=== PATIENT | male | born 1965 | race American Indian/Alaskan Native ===

== ENCOUNTER 2018-12-12 22:03 | Emergency (ER) | payer OTHER ==
[~2018-12-12] VITALS: Ht 180.3 cm; Wt 108.9 kg
[2018-12-12 22:17] VITALS: BP 147/80
--- NOTE | 2018-12-12 22:18 | NUR ---
TO LOBBY A/W BED, AMBULATORY, VSS ERMD NOTED
--- NOTE | 2018-12-12 23:00 | NUR ---
PT AMBULATED TO BED 6.
--- NOTE | 2018-12-12 23:22 | NUR ---
Dr. Dunham evaluating patient at bedside.
--- NOTE | 2018-12-12 23:22 | NUR ---
PT C/O 04/17 ACHING GENERAL ABDOMINAL PAIN X 4 QUADRANTS X 2 DAYS. NONRADIATING, CONTINUOUS. STATES LBM WAS 12/08/18. DENIES N/V/D. BOWEL SOUNDS NORMOACTIVE X 4 QUADRANTS, ABDOMEN ROUND, SOFT, NONTENDER. DENIES CP/SOB/FEVERS/CHILLS. BED IN LOW POSITION, LOCKED, SIDE RAILS UP X 1.
--- NOTE | 2018-12-12 23:32 | NUR ---
PT TAKEN TO XRAY
--- NOTE | 2018-12-12 23:43 | NUR ---
PT RETURN FROM XRAY
[2018-12-13] MEDS ORDERED: KETOROLAC 60 MG/2 ML VIAL IM ONE (00:10)
[2018-12-13 00:31] VITALS: BP 150/88
--- NOTE | 2018-12-13 00:31 | NUR ---
Patient discharged with v/s stable. Written and verbal after care instructions given and explained. Patient alert, oriented and verbalized understanding of instructions. Ambulatory with steady gait. All questions addressed prior to discharge. ID band removed. Patient advised to follow up with PMD. Rx of LACTULOSE AND MOTRIN given. Patient educated on indication of medication including possible reaction and side effects. Opportunity to ask questions provided and answered.
[2018-12-14] MEDS ORDERED: GABA300C PO (10:13)
[2018-12-14] MEDS ORDERED: GLIP10TA3 PO (10:13)
[2018-12-14] MEDS ORDERED: CARV3.12 PO (10:13)
[2018-12-14] MEDS ORDERED: METF-350 PO (10:13)
== END 2018-12-13 00:31 | disposition home or self-care (01) ==
LOC: MED 22:03
DX: K59.00 Constipation, unspecified (principal); E11.9 Type 2 diabetes mellitus without complications; I10 Essential (primary) hypertension
CPT/HCPCS: 74022; 81002; 93005; 96372; 99283; J1885

== ENCOUNTER 2018-12-14 06:17 | Inpatient (IN) | payer OTHER ==
[~2018-12-14] VITALS: Ht 180.3 cm; Wt 108.4 kg
[2018-12-14 06:28] VITALS: BP 162/105
--- NOTE | 2018-12-14 06:28 | NUR ---
PT TAKEN TO BED 9
--- NOTE | 2018-12-14 06:30 | NUR ---
PATIENT CAME INTO THE ER WITH C/O ABDOMINAL PAIN X 5 DAYS. PT WAS SEEN AT THE ER PREVIOUSLY ON 12/12/18 AND GIVEN PRESCRIPTION FOR LACTULOSE AND IBUPROFIN. PT DENIES N/V, ABDOMEN SOFT AND NON DISTENDED, BS ACTIVE X 4 Q, TENDER TO PALPATION IN THE LUQ, LBM 12/13/18 AT 1700, STOOL WAS LOOSE, SOFT AND BROWN. ER MD AWARE. SAFETY PRECAUTIONS IN PLACE. MED HX: HTN, DM, BACK SURGERY RX: METFORMIN, GLIPIZIDE, CARVEDILOL, LISINOPRIL, UNKNOWN NAME FOR MEDICATION FOR BACKPAIN.
--- NOTE | 2018-12-14 06:45 | NUR ---
Dr. Miramontes evaluating patient at bedside.
[2018-12-14] MEDS ORDERED: MORPHINE SULFATE 4 MG/ML SYR IVP ONE (06:50)
[2018-12-14] MEDS ORDERED: NACL 0.9% 1,000 ML IV ONE (06:50)
--- NOTE | 2018-12-14 07:05 | NUR ---
PHLEB AT BEDSIDE FOR LAB DRAWS
[2018-12-14 07:11] LABS: BASOPHILS # (AUTO) 0.1 K/uL (0.00-0.22); BASOPHILS % (AUTO) 0.6 % (0.0-2.0); EOSINOPHILS # (AUTO) 0.1 K/uL (0-0.4); EOSINOPHILS % (AUTO) 1.1 % (0.0-4.0); HEMATOCRIT 45.8 % (36-52); HEMOGLOBIN 15.6 g/dL (12.0-18.0); LYMPHOCYTES # (AUTO) 2.4 K/uL (2.0-11.5); LYMPHOCYTES % (AUTO) 19.3 % (20.5-51.1); MEAN CORPUSCULAR HEMOGLOBIN 29 pg (27-31); MEAN CORPUSCULAR HGB CONC 34 g/dL (33-37); MEAN CORPUSCULAR VOLUME 85.4 fL (80-94); MONOCYTES % (AUTO) 8.1 % (1.7-9.3); NEUTROPHILS # (AUTO) 8.7 K/uL (1.8-7.7); NEUTROPHILS % (AUTO) 70.9 % (42.2-75.2); PLATELET COUNT (AUTO) 272 K/uL (140-450); RED BLOOD CELL COUNT(AUTO) 5.36 MIL/uL (4.20-6.10); RED CELL DISTRIBUTION WIDTH 12.9 % (11.6-13.7); WHITE BLOOD COUNT (AUTO) 12.3 K/uL (4.8-10.8)
--- NOTE | 2018-12-14 07:28 | NUR ---
GAVE REPORT TO VANDANA YAÑEZ
[2018-12-14 07:45] LABS: ALBUMIN 3.8 g/dL (3.4-5.0); ANION GAP 16.6 (8-16); CARBON DIOXIDE 24.3 mmol/L (21-32); CREATININE 0.8 mg/dL (0.7-1.3); POTASSIUM 3.9 mmol/L (3.5-5.1); TOTAL BILIRUBIN 0.8 mg/dL (0.0-1.0)
--- NOTE | 2018-12-14 08:05 | NUR ---
Patient taken to CT scan via wheelchair by tech.
[2018-12-14 08:31] LABS: APPEARANCE,URINE CLEAR (CLEAR); COLOR,URINE ORANGE (YELLOW)
[2018-12-14 08:32] LABS: UGLUCOSE 4+ (NEGATIVE)
[2018-12-14 08:33] LABS: BILIRUBIN,URINE NEGATIVE (NEGATIVE); BLOOD, URINE TRACE (NEGATIVE)
[2018-12-14 08:34] LABS: LEUKOCYTE ESTERASE ,URINE NEGATIVE (NEGATIVE); NITRITE, URINE NEGATIVE (NEGATIVE)
[2018-12-14 08:37] LABS: RBC,URINE 0-5 /HPF (0-5); WBC,URINE 0-5 /HPF (0-5)
--- NOTE | 2018-12-14 09:12 | NUR ---
Patient will be admitted to care of DR. LIAO. Admited to MED SURG. Will go to room 106A. Belongings list completed. Report to SREE YAÑEZ.
[2018-12-14 09:20] VITALS: BP 152/92
--- NOTE | 2018-12-14 09:20 | NUR ---
PATIENT ARRIVED FROM ER VIA WHEELCHAIR. NO DISTRESS NOTED. PAIN WITHIN TOLERABLE AT THIS TIME. AAOX4, CALM, COOPERATIVE, SKIN COLOR APPROPRIATE TO ETHNICITY, WARM TO TOUCH. SKIN INTACT. IV SITE INTACT, PATENT, ON SALINE LOCK AT THIS TIME. ABDOMEN SOFT, NON-DISTENDED. ORIENTED PATIENT TO ROOM AND CALL LIGHT. REVIEWED PLAN OF CARE WITH PATIENT. PATIENT VERBALIZED UNDERSTANDING. SAFETY MEASURES IN PLACE, CALL LIGHT WITHIN REACH. WILL CONTINUE TO MONITOR.
--- NOTE | 2018-12-14 10:00 | NUR ---
DR. LIAO AT BEDSIDE REVIEWING PLAN OF CARE WITH PATIENT. WILL CONTINUE TO MONITOR.
[2018-12-14] MEDS ORDERED: GLIP10TA3 PO (10:13)
[2018-12-14] MEDS ORDERED: CARV3.12 PO (10:13)
[2018-12-14] MEDS ORDERED: METF-350 PO (10:13)
[2018-12-14] MEDS ORDERED: GABA300C PO (10:13)
[2018-12-14] MEDS ORDERED: MORPHINE SULFATE 2 MG/ML SYR IVP PRN (10:35)
[2018-12-14] MEDS ORDERED: MAG SULF 2000 MG/WATER PREMIX 50 ML IV PRN (10:35)
[2018-12-14] MEDS ORDERED: ZOLPIDEM 5 MG TAB PO PRN (10:35)
[2018-12-14] MEDS ORDERED: ALUMINUM HYD/MAG/SIMETHICONE 30 ML UDC PO PRN (10:35)
[2018-12-14] MEDS ORDERED: LORazepam 2 MG/ML VIAL IVP PRN (10:35)
[2018-12-14] MEDS ORDERED: HYDROcodone/APAP 5/325 MG 1 TAB TAB PO PRN (10:35)
[2018-12-14] MEDS ORDERED: guaiFENesin DM 200/20 MG-10 ML 10 ML UDC PO PRN (10:35)
[2018-12-14] MEDS ORDERED: cloNIDine 0.1 MG TAB PO PRN (10:35)
[2018-12-14] MEDS ORDERED: DOCUSATE SODIUM 250 MG GELCAP PO PRN (10:35)
[2018-12-14] MEDS ORDERED: POTASSIUM CHLORIDE 40 MEQ, LIDOCAINE 1% 25 MG in NACL 0.9% 250 ML IV PRN (10:35)
[2018-12-14] MEDS ORDERED: ACETAMINOPHEN 325 MG TAB PO PRN (10:35)
[2018-12-14] MEDS ORDERED: ONDANSETRON 4 MG/2 ML VIAL IVP PRN (10:35)
[2018-12-14] MEDS ORDERED: IPRATROPIUM 0.02% 0.5 MG/2.5 ML NEBU INH PRN (10:35)
[2018-12-14] MEDS ORDERED: diphenhydrAMINE 50 MG/ML VIAL IVP PRN (10:35)
[2018-12-14] MEDS ORDERED: POTASSIUM CHLORIDE 10 MEQ TABER PO PRN (10:35)
[2018-12-14] MEDS ORDERED: BISACODYL 10 MG SUPP RC PRN (10:35)
[2018-12-14] MEDS ORDERED: MAGNESIUM OXIDE 400 MG TAB PO PRN (10:35)
[2018-12-14] MEDS ORDERED: DEXTROSE 50% 50 ML SYR IVP PRN (10:35)
[2018-12-14] MEDS ORDERED: ALBUTEROL 0.083% 2.5 MG/3 ML NEBU INH PRN (10:35)
[2018-12-14] MEDS ORDERED: ACETAMINOPHEN 650 MG SUPP RC PRN (10:35)
[2018-12-14] MEDS ORDERED: LISINOPRIL 10 MG TAB PO SCH (11:00)
[2018-12-14] MEDS ORDERED: amLODIPine 5 MG TAB PO SCH (11:00)
[2018-12-14] MEDS: HYDROcodone/APAP 5/325 MG 1 TAB TAB PO PRN ×3 (11:13→21:33)
[2018-12-14] MEDS: NACL 0.45% 1,000 ML IV SCH (11:14)
[2018-12-14] MEDS: INSULIN LISPRO SLIDING SCALE 100 UNITS/ML VIAL SUBQ PRN ×3 (12:26→23:11)
[2018-12-14] MEDS: BLOOD GLUCOSE MONITORING 1 DEV DEV FS SCH ×3 (12:27→22:58)
--- NOTE | 2018-12-14 12:30 | NUR ---
PATIENT SITTING IN BED WITH LUNCH TRAY IN FRONT. DENIES ANY NAUSEA, NOR ANY ABD PAIN AT THIS TIME. SCHEDULED MEDICATIONS DUE GIVEN. WILL CONTINUE TO MONITOR.
--- NOTE | 2018-12-14 14:30 | NUR ---
PATIENT SITTING IN BED WATCHING TV. NO DISTRESS NOTED. DENIES ANY PAIN AT THIS TIME. CONDITION UNCHANGED. WILL CONTINUE TO MONITOR.
[2018-12-14] MEDS ORDERED: PNEUMOCOCCAL VACCINE 23 MCG/0.5 ML VIAL IMVAC PRN (15:00)
[2018-12-14 16:00] VITALS: BP 123/87
[2018-12-14] MEDS: CARVEDILOL 3.125 MG TAB PO SCH (17:01)
--- NOTE | 2018-12-14 17:16 | NUR ---
PATIENT SITTING IN BED, COMPLAINS OF ABD PAIN, NORCO GIVEN PER MD ORDERS. OTHER SCHEDULED MEDICATIONS DUE GIVEN. WILL CONTINUE TO MONITOR.
--- NOTE | 2018-12-14 19:35 | NUR ---
GAVE REPORT TO SOUND ENGINEER NURSE FOR CONTINUITY OF CARE. PATIENT IN STABLE CONDITION.
--- NOTE | 2018-12-14 19:35 | NUR ---
RECEIVED REPORT AT BEDSIDE FOR CONTINUITY OF CARE, PT IN STABLE CONDITION.
--- NOTE | 2018-12-14 20:00 | NUR ---
PT V/S FOLLOWS T 97.6 P 92 R 18 B/P 109/71 02 96% ON ROOM AIR. PT LUNGS CLEAR AND BOWEL SOUNDS PRESENT BUT SLUGGISH, PT SAID HE HAD A BM THIS AM.PT DENIES PAIN AT THIS TIME.
[2018-12-14] MEDS ORDERED: GABAPENTIN 300 MG CAP PO SCH (21:00)
[2018-12-14] MEDS: FAMOTIDINE 20 MG TAB PO SCH (21:27)
--- NOTE | 2018-12-14 21:35 | NUR ---
PT GIVEN DUE MEDS AT THIS TIME FINGERSTICK IS 184, PT GIVEN 2UNITS OF HUMALOG ANFD PT C/O OF 4/10 PAIN IN UPPER RIGHT QUADRENT, GIVEN 1 TAB OF NORCO PO/PRN FOR 4/10 PAIN. WILL MONITOR FOR EFFECT.
[2018-12-15] VITALS: BP 103/60
[2018-12-15] MEDS: NACL 0.45% 1,000 ML IV SCH
--- NOTE | 2018-12-15 01:00 | NUR ---
PT IN BED NO S/S OF PAIN OR DISTRESS NOTED, V/S FOLLOWS T 98.0 P 84 R 18 B/P 103/60 02 96% ON ROOM AIR. PT VOIDED 700MLS OF DARK CLAU URINE AND FLUIDS 1/2 N/S REPLACED AND RUNNING AT 75MLSD/HR.
--- NOTE | 2018-12-15 01:47 | NUR ---
REPORT GIVEN TO SEBASTIAN FOR CONTINUITY OF CARE,DUE TO CHANGE OF ASSIGNMENT PT IN STABLE CONDITION.
--- NOTE | 2018-12-15 01:47 | NUR ---
RECEIVED REPORT FROM RN. PT SLEEPING IN BED. NO S/S OF ACUTE DISTRESS. CALL LIGHT WITHIN REACH. SAFETY MEASURES ENSURED. WILL CONTINUE TO MONITOR.
--- NOTE | 2018-12-15 02:30 | NUR ---
RECEIVED PT BACK FOR ANOTHER CHANGE OF ASSIGNMENT. NO CHANGES , PT SLEEPING.
--- NOTE | 2018-12-15 03:45 | NUR ---
PT SLEEPING NO S/S OF PAIN OR DISTRESS NOTED. BED LOW SIDE RAILS UP X2 AND IV SITE INTACT AND RUNNING 75MLS ORDERED.
[2018-12-15] MEDS: INSULIN LISPRO SLIDING SCALE 100 UNITS/ML VIAL SUBQ PRN ×2 (06:19→12:06)
[2018-12-15] MEDS: BLOOD GLUCOSE MONITORING 1 DEV DEV FS SCH ×2 (06:21→12:05)
[2018-12-15] MEDS: HYDROcodone/APAP 5/325 MG 1 TAB TAB PO PRN (06:23)
--- NOTE | 2018-12-15 07:20 | NUR ---
GAVE REPORT TO CAITLIN YAÑEZ DAYSHIFT NURSE AT BEDSIDE FOR CONTINUITY OF CARE, PT IN STABLE CONDITION.
[2018-12-15 07:22] LABS: ANION GAP 12.1 (8-16); CARBON DIOXIDE 27.6 mmol/L (21-32); CREATININE 0.7 mg/dL (0.7-1.3); POTASSIUM 3.7 mmol/L (3.5-5.1)
--- NOTE | 2018-12-15 07:25 | NUR ---
RECEIVED HAND OFF REPORT FROM WIRE BENDER HAND NURSE. PT IS AWAKE IN BED. IV IS INFUSING 1/2 NS AT 75ML/HR. IV SHOWS NO SIGNS OF INFILTRATION. PT APPEARS IN NO APPARENT DISTRESS, ALL SAFETY MEASURES ARE IN PLACE. WILL CONTINUE TO MONITOR.
[2018-12-15 07:44] LABS: BASOPHILS % (AUTO) 0.5 % (0.0-2.0); EOSINOPHILS # (AUTO) 0.2 K/uL (0-0.4); EOSINOPHILS % (AUTO) 3.3 % (0.0-4.0); HEMATOCRIT 40.1 % (36-52); HEMOGLOBIN 13.5 g/dL (12.0-18.0); LYMPHOCYTES # (AUTO) 2.5 K/uL (2.0-11.5); LYMPHOCYTES % (AUTO) 34.5 % (20.5-51.1); MEAN CORPUSCULAR HEMOGLOBIN 29 pg (27-31); MEAN CORPUSCULAR HGB CONC 34 g/dL (33-37); MEAN CORPUSCULAR VOLUME 86.4 fL (80-94); MONOCYTES # (AUTO) 0.7 K/uL (0.8-1.0); MONOCYTES % (AUTO) 9.3 % (1.7-9.3); NEUTROPHILS # (AUTO) 3.8 K/uL (1.8-7.7); NEUTROPHILS % (AUTO) 52.4 % (42.2-75.2); PLATELET COUNT (AUTO) 260 K/uL (140-450); RED BLOOD CELL COUNT(AUTO) 4.64 MIL/uL (4.20-6.10); RED CELL DISTRIBUTION WIDTH 13.1 % (11.6-13.7); WHITE BLOOD COUNT (AUTO) 7.3 K/uL (4.8-10.8)
--- NOTE | 2018-12-15 08:20 | NUR ---
PERFORMED MORNING ASSESSMENT AND VITALS BP IS WITHIN NORMAL LIMITS PT IS AWAKE AND ALERT. PTS LUNG SOUNDS ARE CLEAR, S1 AND S2 HEARD UPON AUSCULTATION. PT HAS NO COMPLAINTS OF PAIN.
--- NOTE | 2018-12-15 08:21 | NUR ---
PATIENT HAS BEEN SCREENED AND CATEGORIZED HIGH NUTRITION RISK. PATIENT WILL BE SEEN WITHIN 1-2 DAYS OF ADMISSION. 12/15/[address]
[2018-12-15 08:26] VITALS: BP 122/76
--- NOTE | 2018-12-15 08:40 | NUR ---
PT IS AWAKE AND ALERT IN BED. FAMILY IS AT THE PT BEDSIDE. PT APPEARS IN STABLE CONDITION AND IN NO APPARENT DISTRESS. NO COMPLAINTS OF PAIN. ALL SAFETY MEASURES ARE IN PLACE. WILL CONTINUE TO MONITOR.
[2018-12-15] MEDS: CARVEDILOL 3.125 MG TAB PO SCH (08:41)
[2018-12-15] MEDS: FAMOTIDINE 20 MG TAB PO SCH (08:42)
[2018-12-15] MEDS ORDERED: LISINOPRIL 10 MG TAB PO SCH (09:00)
[2018-12-15] MEDS ORDERED: amLODIPine 5 MG TAB PO SCH (09:00)
[2018-12-15] MEDS ORDERED: ENOXAPARIN 40 MG/0.4 ML SYR SUBQ SCH (09:00)
[2018-12-15] MEDS ORDERED: SITA50TA3 PO (10:20)
--- NOTE | 2018-12-15 11:45 | NUR ---
FINGER STICK GLUCOSE CHECK 233 GAVE PT 4UNITS OF INSULIN PER SLIDING SCALE ORDER. PT IS AWAKE IN BED PT APPEARS IN STABLE CONDITION.
[2018-12-15 12:17] VITALS: BP 122/76
[2018-12-15 12:23] VITALS: BP 122/76
[2018-12-15 12:26] VITALS: BP 122/76
[2018-12-15 12:34] VITALS: BP 122/64
--- NOTE | 2018-12-15 13:30 | NUR ---
PT IS READY FOR DISCHARGE BEING PICKED UP BY HIS SON. IV IS REMOVED IV CATH TIP IS IN PLACE. ID BAND WAS REMOVED AND DISCARDED. CLIENT IS STABLE AND AMBULATED BY HIMSELF TO THE FRONT. PT SIGNED HIS FORMS. AND LEFT WITH ALL BELONGINGS AND PT LEFT WITH PAPER PRESCRIPTION FOR NEW MEDICATION ORDERS.
--- NOTE | 2018-12-15 14:08 | NUR ---
12/15/18 RD INITIAL ASSESSMENT COMPLETED PLEASE REFER TO NUTRITION ASSESSMENT UNDER CARE ACTIVITY FOR ESTIMATED NUTRITIONAL NEEDS. 1. CONTINUE CLEAR LIQUID CCHO 60 GM DIET TOLERATED 2. IF/WHEN PATIENT IS MEDICALLY STABLE CONSIDER ADVANCING HIS DIET TO CCHO [address] PROVIDED NUTRITION EDUCATION ON DIABETES. PT ACCEPTED 4. RD TO FOLLOW-UP 3-5 DAYS, MODERATE RISK RENETTA MONTOYA RD
--- NOTE | 2018-12-16 09:57 | NUR ---
CM NOTE I SPOKE WITH АНДРЕЙ OF [facility] PH# [phone] TO SET UP PATIENT'S OUTPATIENT FOLLOW UP APPOINTMENT ON DECEMBER 18, 2018, 2:15 PM AT THE CLINIC AT [address] [place] [address]. I CALLED THE PATIENT TO GIVE HIM HIS OUTPATIENT FOLLOW UP SCHEDULE.
== END 2018-12-15 13:30 | disposition home or self-care (01) | DRG 282 ==
LOC: MED 06:17 → MTU 08:41
PROVIDERS: ADMIT Internal Medicine Pulmonary Disease; ATTEND Internal Medicine Pulmonary Disease
DX: K85.90 Acute pancreatitis without necrosis or infection, unspecified (principal); E11.65 Type 2 diabetes mellitus with hyperglycemia; E66.01 Morbid (severe) obesity due to excess calories; F17.200 Nicotine dependence, unspecified, uncomplicated; I10 Essential (primary) hypertension; E78.5 Hyperlipidemia, unspecified; Z68.33 Body mass index [BMI] 33.0-33.9, adult
CPT/HCPCS: 36415; 80048; 80053; 81001; 82948; 83690; 85025; 87081; 93005; 96361; 96374; 99285; J1200; J1650; J1815; J2270; Q9967

== ENCOUNTER 2021-01-12 13:42 | Emergency (ER) | payer OTHER ==
[~2021-01-12] VITALS: Ht 180.3 cm; Wt 117.0 kg
[~2021-01-12 13:42] MED LIST: CARV3.12 PO; GABA300C PO; GLIP10TA3 PO; SITA50TA3 PO
[2021-01-12 14:00] VITALS: BP 148/90
--- NOTE | 2021-01-12 14:06 | NUR ---
LAURIE Cooper at pt bedside for further evaluation.
--- NOTE | 2021-01-12 14:06 | NUR ---
Pt ambulated to ER bed 9.
--- NOTE | 2021-01-12 14:11 | NUR ---
55 Y/O MALE C/O LOWER BACK PAIN FOR [id number], PT STATES PAIN WORSENS WITH MOVEMENT. PT TOOK GABAPENTIN AND NO RELIEF. PT AT THIS MOMENT 04/17. PT HAS HISTORY OF HERNIATED DISK AND BACK SURGERY. PMH: DM, HTN, CHRONIC BACK PAIN RX: GLIPIZDIE, LISINOPRIL, CARBIDOL, ASA, PIOGLITAZONE, GABAPENTIN NKA
[2021-01-12] MEDS ORDERED: ACET-8386 PO (14:34)
[2021-01-12] MEDS ORDERED: LIDO1ADH47 TP (14:35)
[2021-01-12] MEDS ORDERED: KETOROLAC 60 MG/2 ML VIAL IM ONE (14:35)
[2021-01-12 15:10] VITALS: BP 148/90
--- NOTE | 2021-01-12 15:11 | NUR ---
Patient discharged with v/s stable. Written and verbal after care instructions given and explained. Patient alert, oriented and verbalized understanding of instructions. Ambulatory with steady gait. All questions addressed prior to discharge. ID band removed. Patient advised to follow up with PMD. Rx of NORCO 5MG-325MG PO [id number] PRN SEVERE PAIN, AND LIDOCAINE PATCH Q12H TO AFFECTED AREA given. Patient educated on indication of medication including possible reaction and side effects. Opportunity to ask questions provided and answered.
== END 2021-01-12 15:11 | disposition home or self-care (01) ==
LOC: MED 13:42
DX: G89.29 Other chronic pain (principal); M54.5 Low back pain; E11.9 Type 2 diabetes mellitus without complications; I10 Essential (primary) hypertension; Z79.899 Other long term (current) drug therapy
CPT/HCPCS: 96372; 99283; J1885

== ENCOUNTER 2022-07-27 08:46 | Emergency (ER) | payer OTHER ==
[~2022-07-27] VITALS: Ht 180.3 cm; Wt 112.5 kg
[~2022-07-27 08:46] MED LIST changes: +ACET-8386 PO; +LIDO1ADH47 TP
[2022-07-27 08:50] VITALS: BP 138/83
--- NOTE | 2022-07-27 09:21 | NUR ---
pt ambulated to er bed 1
--- NOTE | 2022-07-27 09:26 | NUR ---
here for left heel pain for three weeks, no swelling or erythema noted
[2022-07-27] MEDS ORDERED: IBUP-2213 PO (09:57)
--- NOTE | 2022-07-27 10:08 | NUR ---
PT'S LEFT ANKLE WRAPPED WITH 3" AVE WRAP. CMS WNL BEFORE AND AFTER.
[2022-07-27 10:14] VITALS: BP 129/78
--- NOTE | 2022-07-27 10:15 | NUR ---
Patient discharged with v/s stable. Written and verbal after care instructions given and explained. Patient verbalized understanding. Ambulatory with steady gait. All questions addressed prior to discharge. Advised to follow up with PMD.
== END 2022-07-27 10:15 | disposition home or self-care (01) ==
LOC: MED 08:46
DX: M72.2 Plantar fascial fibromatosis (principal); E11.9 Type 2 diabetes mellitus without complications; I10 Essential (primary) hypertension; Z79.84 Long term (current) use of oral hypoglycemic drugs; Z79.899 Other long term (current) drug therapy
CPT/HCPCS: 94640; 99283

== ENCOUNTER 2023-05-02 13:28 | Emergency (ER) | payer OTHER ==
[~2023-05-02] VITALS: Ht 180.3 cm; Wt 113.4 kg
[~2023-05-02 13:28] MED LIST changes: -ACET-8386 PO; +ACET-8905 PO; +IBUP-2213 PO
[2023-05-02 13:43] VITALS: BP 138/77; PULSE 70; RESP 16; TEMP 97.5; O2SAT 96
[2023-05-02 15:07] LABS: BASOPHILS % (AUTO) 0.5 % (0.0-2.0); EOSINOPHILS # (AUTO) 0.2 K/uL (0-0.4); EOSINOPHILS % (AUTO) 2.5 % (0.0-4.0); HEMATOCRIT 39.4 % (36-52); HEMOGLOBIN 13.3 g/dL (12.0-18.0); LYMPHOCYTES # (AUTO) 2.7 K/uL (2.0-11.5); LYMPHOCYTES % (AUTO) 40.6 % (20.5-51.1); MEAN CORPUSCULAR HEMOGLOBIN 29 pg (27-31); MEAN CORPUSCULAR HGB CONC 34 g/dL (33-37); MEAN CORPUSCULAR VOLUME 86.1 fL (80-94); MONOCYTES # (AUTO) 0.5 K/uL (0.8-1.0); MONOCYTES % (AUTO) 7.4 % (1.7-9.3); NEUTROPHILS # (AUTO) 3.3 K/uL (1.8-7.7); PLATELET COUNT (AUTO) 199 K/uL (140-450); RED BLOOD CELL COUNT(AUTO) 4.58 MIL/uL (4.20-6.10); RED CELL DISTRIBUTION WIDTH 13.8 % (11.6-13.7); WHITE BLOOD COUNT (AUTO) 6.7 K/uL (4.8-10.8)
[2023-05-02 15:16] LABS: APPEARANCE,URINE CLEAR (CLEAR); BILIRUBIN,URINE NEGATIVE (NEGATIVE); BLOOD, URINE NEGATIVE (NEGATIVE); COLOR,URINE YELLOW (YELLOW); LEUKOCYTE ESTERASE ,URINE NEGATIVE (NEGATIVE); NITRITE, URINE NEGATIVE (NEGATIVE); PH,URINE 6.5 (5.0-9.0); PROTEIN,URINE NEGATIVE (NEGATIVE); UGLUCOSE NEGATIVE (NEGATIVE); UROBILINOGEN,URINE 0.2 EU/dL (0.2 - 1)
[2023-05-02 15:21] LABS: ALBUMIN 3.7 g/dL (3.4-5.0); ANION GAP 10.6 (8-16); CALCIUM 8.4 mg/dL (8.5-10.1); CARBON DIOXIDE 29.3 mmol/L (21-32); CREATININE 0.9 mg/dL (0.6-1.3); POTASSIUM 3.9 mmol/L (3.5-5.1); TOTAL BILIRUBIN 0.3 mg/dL (0.0-1.0); TOTAL PROTEIN, SERUM 7.3 g/dL (6.4-8.2)
[2023-05-02] MEDS ORDERED: KETOROLAC 60 MG/2 ML VIAL IM ONE (15:50)
[2023-05-02 18:18] VITALS: BP 138/77; PULSE 70; RESP 16; TEMP 97.5; O2SAT 96
== END 2023-05-02 18:12 | disposition home or self-care (01) ==
LOC: MED 13:28
DX: K76.0 Fatty (change of) liver, not elsewhere classified (principal); I10 Essential (primary) hypertension; E11.9 Type 2 diabetes mellitus without complications; Z79.84 Long term (current) use of oral hypoglycemic drugs; Z98.890 Other specified postprocedural states
CPT/HCPCS: 36415; 74176; 76705; 80053; 81001; 83690; 85025; 96372; 99285; J1885; Q0092; 81003

== ENCOUNTER 2024-02-21 10:30 | Emergency (ER) | payer OTHER ==
[~2024-02-21] VITALS: Ht 180.3 cm; Wt 113.4 kg
[2024-02-21 10:52] VITALS: BP 153/76; PULSE 66; RESP 18; TEMP 97.2; O2SAT 99
[2024-02-21] MEDS: IBUPROFEN 600 MG TAB PO ONE (11:22)
[2024-02-21] MEDS ORDERED: IBUP-2213 PO (12:00)
[2024-02-21 12:14] VITALS: BP 153/76; PULSE 66; RESP 18; TEMP 97.2; O2SAT 99
== END 2024-02-21 12:15 | disposition home or self-care (01) ==
LOC: MED 10:30
DX: S83.8X2A Sprain of other specified parts of left knee, initial encounter (principal); E11.9 Type 2 diabetes mellitus without complications; I10 Essential (primary) hypertension; Z79.4 Long term (current) use of insulin; Z79.899 Other long term (current) drug therapy; X58.XXXA Exposure to other specified factors, initial encounter; Y93.89 Activity, other specified; Y92.89 Other specified places as the place of occurrence of the external cause; Y99.8 Other external cause status
CPT/HCPCS: 73562; 82948; 99283